=== PATIENT | male | born 1945 | race African-American/Black ===

== ENCOUNTER → 2017-07-17 | Outpatient (CLI) | payer OTHER, BC ==
--- NOTE | ~2017-07-17 | 2DMMODE ---
[facility] [address] [place] [address] 2 D/M-MODE ECHOCARDIOGRAM Name: DIOGENES MEDLEY [facility] [id number] Admission: 07/17/17 Attend Phys: Patrick Padgett Discharge: Date of : 43 Date of Service: 07/17/17 1056 Report #: [id number] THIS REPORT FOR: //name// APPROVED REPORT Study performed: 07/17/2017 10:10:10 EXAM: Comprehensive 2D, Doppler, and color-flow Echocardiogram Patient Location: Out-Patient Room #: Echo lab Status: routine BSA: 1.95 HR: 59 bpm BP: 126/78 mmHg Other Information Study Quality: Good Indications Hypotension Dyspnea 2D Dimensions RVDd: 36.47 mm LVEF(%): 59.46 (>50%) IVSd: 14.80 (7-11mm) LVOT Diam: 22.69 (18-24mm) LVDd: 46.28 mm PWd: 14.25 (7-11mm) Ascending Ao: 29.02 (22-36mm) LVDs: 31.70 (25-40mm) Aortic Root: 31.17 mm IVC: 20.00 mm Perkins's LVEF: 59.46 % Volumes Left Atrial Volume (Systole) Single Plane 4CH: 36.34 mL Single Plane 2CH: 58.29 mL LA ESV Index: 30.00 mL/m2 Aortic Valve AoV Peak Misael.: 1.06 m/s AO Peak Gr.: 4.49 mmHg LVOT Max P.71 mmHg LVOT Max V: 0.82 m/s SKYE Vmax: 3.14 cm2 Mitral Valve E/A Ratio: 1.0 MV Decel. Time: 274.85 ms [facility] [place] [address] 2 D/M-MODE ECHOCARDIOGRAM Name: DIOGENES MEDLEY Room #: [facility]#: [id number] Admission: 07/17/17 Attend Phys: Patrick Padgett Discharge: Date of : 43 Date of Service: 07/17/17 1056 Report #: [id number] MV E Max Misael.: 0.56 m/s MV A Misael.: 0.58 m/s MV PHT: 79.71 ms IVRT: 138.41 ms Pulmonary Valve PV Peak Misael.: 0.88 m/s PV Peak Gr.: 3.12 mmHg Pulmonary Vein P Vein S: 0.50 m/s P Vein A: 0.23 m/s P Vein D: 0.40 m/s P Vein A Dur.: 110.7 msec P Vein S/D Ratio: 1.25 Tricuspid Valve TR Peak Misael.: 2.05 m/s TR Peak Gr.: 16.74 mmHg PA Pressure: 27.00 mmHg Shunt Evaluation QP/QS: 3.00 Left Ventricle The left ventricle is normal size. Moderate concentric left ventricular hypertrophy. The left ventricular systolic function is normal. The left ventricular ejection fraction is within the normal range. LVEF is 55-60%. Grade I - abnormal relaxation pattern. Right Ventricle The right ventricle is normal size. The right ventricular systolic function is normal. Atria The left atrium size is normal. Right atrium is mildly dilated. Aortic Valve The aortic valve is normal in structure. Aortic valve is calcified. No aortic regurgitation is present. There is no aortic valvular stenosis. Mitral Valve The mitral valve is normal in structure. Trace to mild mitral regurgitation. No evidence of mitral valve stenosis. Tricuspid Valve The tricuspid valve is normal in structure. There is trace tricuspid [facility] [address] [place] [address] 2 D/M-MODE ECHOCARDIOGRAM Name: DIOGENES MEDLEY Room #: REG ANDREA Iqbal#: [id number] Admission: 07/17/17 Attend Phys: Patrick Padgett Discharge: Date of : 43 Date of Service: 07/17/17 1056 Report #: [id number] regurgitation. The right atrial pressure is estimated at mmHg. There is no pulmonary hypertension. Pulmonic Valve The pulmonary valve is normal in structure. Trace pulmonic regurgitation. Great Vessels The aortic root is normal in size. IVC is dilated and collapses >50% with inspiration. Pericardium There is no pericardial effusion. <Conclusion> The left ventricle is normal size. LVEF is 55-60%. Right atrium is mildly dilated. The aortic valve is normal in structure. Aortic valve is calcified. The mitral valve is normal in structure. Trace to mild mitral regurgitation. The tricuspid valve is normal in structure. There is trace tricuspid regurgitation. The right atrial pressure is estimated at mmHg. There is no pulmonary hypertension. The pulmonary valve is normal in structure. Trace pulmonic regurgitation. There is no pericardial effusion. <ELECTRONICALLY SIGNED> By: Patrick De Jesus MD 07/17/17 1056 1056 1056 Patrick De Jesus MD /INF
== END ==
LOC: CV 09:48
DX: I95.9 Hypotension, unspecified (principal); R07.9 Chest pain, unspecified; R06.00 Dyspnea, unspecified; R00.1 Bradycardia, unspecified; E78.5 Hyperlipidemia, unspecified; Z87.891 Personal history of nicotine dependence

== ENCOUNTER → 2019-03-12 | Outpatient (CLI) | payer OTHER, BC ==
[~2019-03-12] VITALS: Ht 175.3 cm; Wt 70.3 kg
[~2019-03-12] MED LIST: ASPIR-LOW81 MG PO; AZOPT OPHTH1 %/10 M1 OPHTHALMIC; COMBIGAN EYE DR10 ML OPHTHALMIC; CRESTOR20 MG PO; GLUCOSAMINE &1 EACH PO; LOSARTAN-HCTZ1 EAC3 PO; MULTI VITAMIN1 EACH PO; NORVASC10 MG PO; PRED FORTE 1% EY5 M1 OPHTHALMIC; TRAVATAN Z2.5 ML OPHTHALMIC
--- NOTE | ~2019-03-12 | P ---
[facility] [place] [address] [place] [address] PROCEDURE REPORT Name: JASMYNEDIOGENES G Room #: REG [facility]#: [id number] Admission: 03/12/19 Attend Phys: Karri Castillo MD Discharge: Date of : 43 Report #: [id number] THIS REPORT FOR: //name// CC: Karri Cruz DATE OF SERVICE: 03/12/2019 BRIEF HISTORY: The patient is a 74-year-old male with a history of colon polyps. He also has a history of a mild normochromic anemia with hemoglobin of 12.1. PREOPERATIVE DIAGNOSIS: History of polyps and anemia. POSTOPERATIVE DIAGNOSIS: Normal colonoscopy. MEDICATIONS: Deep sedation with propofol per anesthesia. SPECIMEN: None. ESTIMATED BLOOD LOSS: None. PROCEDURE: Colonoscopy to cecum and terminal ileum. FINDINGS: Prior to propofol sedation, procedure of colonoscopy discussed with the patient as well as potential risks and its complications. He indicates he understands and desires to proceed. DESCRIPTION OF PROCEDURE: With the patient in left lateral decubitus position, digital examination was completed, which revealed no abnormalities. Subsequently, the Olympus video colonoscope was introduced in the rectum, advanced under direct vision to the cecum, done with minimal difficulty. The cecum was identified by the ileocecal valve and the appendiceal orifice. I was able to visualize the distal segment of the terminal ileum, which was inspected and noted to be unremarkable. At that point, the scope was slowly withdrawn and careful circumferential views were obtained. Upon slow withdrawal of the scope, the prep was excellent. The mucosa was within normal limits, normal vascular pattern, normal light reflex. As we withdrew the scope, no neoplastic lesions were seen. As far as anemia, there were no mucosal abnormalities or inflammatory changes. Bleeding lesions were not seen. He had normal colonic mucosa throughout the entire colon. The scope was withdrawn in the rectum and no abnormalities were seen. Upon retroflexion, no abnormalities were seen. The scope was withdrawn. The patient tolerated the procedure well. CONDITION OF THE PATIENT UPON DISCHARGE: Following procedure, the patient was [facility] [address] [place] [address] PROCEDURE REPORT Name: DIOGENES MEDLEY Room #: REG [facility]..#: [id number] Admission: 03/12/19 Attend Phys: Karri Castillo MD Discharge: Date of : 43 Report #: [id number] drowsy, arousable, conversant, and will be discharged home when fully ambulatory. INSTRUCTIONS TO THE PATIENT AND FAMILY AT THE TIME OF DISCHARGE: No neoplastic lesions seen today. He had 2 very small polyps 5 years ago. I would typically recommend a followup colonoscopy in 10 years. However, at that point in life, there may be minimal advantage to routine screening colonoscopy. He will return to the care of Dr. Lupe Cruz. If there remains concern about his anemia, an upper endoscopy could be completed at a later date. It is noted the patient does not have any GI symptoms at this point in time. By: [id number] Karri Castillo MD /nt
== END | disposition home or self-care (01) ==
LOC: GI 07:25
DX: D64.89 Other specified anemias (principal); Z86.010 Personal history of colon polyps; I10 Essential (primary) hypertension; E78.5 Hyperlipidemia, unspecified; Z87.891 Personal history of nicotine dependence; Z85.46 Personal history of malignant neoplasm of prostate; Z98.890 Other specified postprocedural states; Z79.899 Other long term (current) drug therapy; Z79.82 Long term (current) use of aspirin
CPT/HCPCS: 62110; 62900